=== PATIENT | female | born 1985 | race Caucasian/White ===

== ENCOUNTER 2020-05-09 06:57 | Outpatient (NON) | payer BC, OTHER, SELFPAY ==
[2020-05-09 22:44] LABS: SARS-CoV-2 RNA PCR Negative
== END 2020-05-09 06:58 ==
PROVIDERS: PCP Family Medicine; Visit Provider Family Medicine
DX: R50.9 Fever, unspecified (principal)
CPT/HCPCS: 87635; C9803; U0003

== ENCOUNTER 2020-07-26 06:54 | Outpatient (NON) | payer OTHER, SELFPAY ==
[2020-07-26 18:24] LABS: SARS-CoV-2 RNA PCR Negative
== END 2020-07-26 06:55 ==
PROVIDERS: PCP Family Medicine; Visit Provider Family Medicine
DX: R05 Cough (principal); Z20.828 Contact with and (suspected) exposure to other viral communicable diseases
CPT/HCPCS: 87635; C9803; U0003

== ENCOUNTER 2020-09-28 18:56 | Outpatient (CLI) | payer OTHER, SELFPAY ==
--- NOTE | ~2020-09-28 | XR_ITS ---
EXAMINATION: XR chest 2V DATE: 09/28/2020 19:11 INDICATION: Lung nodule seen on recent right shoulder radiographs. TECHNIQUE: PA and lateral views of the chest were obtained. COMPARISON: Chest radiograph dated 12/18/2013 FINDINGS: 1.7 cm chronic right upper lobe nodule which is calcified as demonstrated on neck CT dated 11/27/2016 c onsistent with old granulomatous disease. No other airspace opacities, pulmonary edema, pleural effus ion or pneumothorax. The cardiomediastinal silhouette is normal. Visualized bones and soft tissues ar e unremarkable. IMPRESSION: 1. 1.7 cm chronic calcified right upper lobe nodule consistent with old granulomatous disease. Reviewed, dictated and finalized at location A. NICAL SERVICES COORDINATOR IMPRESSION: 1. 1.7 cm chronic calcified right upper lobe nodule consistent with old granulo matous disease.
== END 2020-09-28 18:57 | disposition home or self-care (01) ==
PROVIDERS: PCP Family Medicine; Visit Provider Family Medicine
DX: R91.1 Solitary pulmonary nodule (principal)
CPT/HCPCS: 71046

== ENCOUNTER 2020-10-10 06:57 | Outpatient (NON) | payer OTHER, SELFPAY ==
[2020-10-10 16:58] LABS: Influenza Control Positive
== END 2020-10-10 06:58 ==
PROVIDERS: PCP Family Medicine; Visit Provider Family Medicine
DX: R05 Cough (principal)
CPT/HCPCS: 87804

== ENCOUNTER 2020-11-16 06:50 | Outpatient (NON) | payer OTHER, SELFPAY ==
[2020-11-16 16:56] LABS: Influenza Control Positive
[2020-11-16 21:44] LABS: SARS-CoV-2 RNA PCR Positive
== END 2020-11-16 06:51 ==
PROVIDERS: PCP Family Medicine; Visit Provider Family Medicine
DX: R50.9 Fever, unspecified (principal); U07.1 COVID-19
CPT/HCPCS: 87804; C9803; U0003; U0005

== ENCOUNTER → 2021-08-10 06:24 | Outpatient (CLI) | payer OTHER, SELFPAY ==
[2021-08-10 17:46] LABS: SARS-CoV-2 RNA PCR Negative
== END ==
PROVIDERS: PCP Family Medicine; Visit Provider Family Medicine
DX: J02.9 Acute pharyngitis, unspecified (principal); Z20.822 Contact with and (suspected) exposure to COVID-19
CPT/HCPCS: C9803; U0003; U0005

== ENCOUNTER 2024-12-01 16:52 | Emergency (ER) | payer OTHER, SELFPAY ==
--- OUTSIDE RECORDS SUMMARY | 2024-12-01 16:55 | XMS_ITS | Referral Summary ---
Author Organization [facility] Address [address] [place] [address] Care Team Providers Care Retail Services Professional Name Role Phone Fany Lozoya MD Primary Care Provider [phone] Source Comments [facility],non-owned Affiliates and Associated Physician Practices is amultiple site organization consisting of ambulatory clinics and hospital sitesin [place], [place], [place] and [place]. This disclosure is being madepursuant to the Care Everywhere program and may not contain all information available regarding this patient. Last updated 18.[facility] Allergies No known active allergies Medications * Be aware that medications may not be up to date on this document. Alwaysverify current medications with the patient. Medication Sig Dispensed Refills Start Date End Date Status ALPRAZolam (XANAX PO) Take by mouth as needed Active Social History Tobacco Use Types Packs/Day Years Used Date Smoking Tobacco: Every Day Cigarettes Sex and Gender Information Value Date Recorded Sex Assigned at Not on file Gender Identity Not on file Sexual Orientation Not on file Last Filed Vital Signs Vital Sign Reading Time Taken Comments Blood Pressure 120/74 10/07/2016 10:43 AM INTERVENTIONAL CARDIOLOGIST Pulse 95 10/07/2016 10:43 AM INTERVENTIONAL CARDIOLOGIST Temperature 36.6 C (97.9 F) 10/07/2016 10:43 AM INTERVENTIONAL CARDIOLOGIST Respiratory Rate 18 10/07/2016 10:43 AM INTERVENTIONAL CARDIOLOGIST Oxygen Saturation - - Inhaled Oxygen Concentration - - Weight 131.5 kg (290 lb) 10/07/2016 10:43 AM INTERVENTIONAL CARDIOLOGIST Height 175.3 cm (5' 9 ) 10/07/2016 10:43 AM INTERVENTIONAL CARDIOLOGIST Body Mass Index 42.83 10/07/2016 10:43 AM INTERVENTIONAL CARDIOLOGIST Plan of Treatment Not on file Care Teams Retail Services Professional Relationship Specialty Start Date End Date Fany Lozoya MD PCP - General Family Medicine 10/07/16
--- OUTSIDE RECORDS SUMMARY | 2024-12-01 16:55 | XMS_ITS | Referral Summary ---
Author Organization [facility] Address [address] [place] [address] Care Team Providers Care Ward Secretary Name Role Phone AntoniaKaterin DO Unavailable [phone] Tres Trinidad MD Primary Care Provider [phone] Layo Villegas MD Unavailable [phone] Allergies Active Allergy Reactions Criticality Noted Date Comments Omeprazole Diarrhea,Other (See comments) Low 2018 Prednisone Rash Medium 02/25/2018 Medications ALPRAZolam (XANAX) 0.25 mg tablet TK 1 T PO EVERY 8 HOURS PRN FOR ANXIETY 0 03/24/2018 Active levothyroxine (SYNTHROID, LEVOTHROID) 112 mcg tablet 12/14/2018 Active Synthroid 125 mcg tablet TAKE 1 TABLET BY MOUTH EVERY MORNING. TOTAL DAILY DOSE 237 MCG 12/08/2023 Active famotidine (PEPCID) 40 mg tablet Take 1 tablet (40 mg total) by mouth daily Active Active Problems Problem Noted Date Diagnosed Date Polyarthralgia 01/08/2024 Overview (01/22/2024): Labs 01/08/24: RBC 3.67, Hgb 10.2, Hct 31.8, TSH 27.2, FT4 1.0, CMP nl, ESR 17, CRP 0.09mg/dL, hepatitis panel negative [facility] 01/08/24: +TG (>4794), +TPO 87 XR b/l hands 12/2023: unremarkable US right hand/wrist (01/22/24): No significant joint effusions, power doppler, or erosive changes seen on US examination. Moderate synovial thickening in the 3rd PIP. Mild synovial thickening in the 2nd PIP joint. An enlarged median nerve at 0.14 cm2 is identified. 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 C/o persistent joint pain/stiffness lasting all day. Unable to take NSAIDs since weight loss surgery and taking tylenol without benefit. There is no obvious synovitis or tenderness noted on peripheral exam. Rheumatologic evaluation with [facility] revealed only +anti-thyroglobulin and TPO ab but was otherwise unremarkable for any other autoantibodies. TSH remains elevated but improved since being back on medication. XR of both hands are unremarkable. US of the right hand/wrist did not show any signs to suggest an inflammatory arthritis. There was some enlargement of the median nerve that may correlate if she is having any carpal tunnel symptoms. Based on unremarkable serologies, XR, and hand US, there is no evidence to suggest rheumatoid arthritis at this time. Previous 5th MCP erosion noted on MRI is not visualized on recent hand XR or hand US. Follow up as needed. Seen with Dr. Villegas. 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 C/o persistent joint pain/stiffness lasting all day. Unable to take NSAIDs since weight loss surgery and taking tylenol without benefit. There is no obvious synovitis or tenderness noted on peripheral exam today. Symptoms and exam are not overly suspicious for rheumatoid arthritis or any other inflammatory arthritis at this time. Will order appropriate serologies, radiographs, and a right hand/wrist US to further evaluate. Follow up in 2 weeks. Sooner if needed. Seen with Dr. Villegas. Tobacco dependence 02/11/2019 Other specified anxiety disorders 12/10/2018 Morbid obesity due to excess calories 11/12/2018 Overview (11/12/2018): Added automatically from request for surgery [id number] Arthralgia 02/25/2018 Elevated erythrocyte sedimentation rate 02/26/20 18 History of miscarriage 02/25/2018 Social History Tobacco Use Types Packs/Day Years Used Date Smoking Tobacco: Every Day Smokeless Tobacco: Never Comments:1 pack a week Alcohol Use Standard Drinks/Week Comments Yes 0 (1 standard drink = 0.6 oz pur e alcohol) once a month Personal Safety Answer Date Recorded Getting School Help Needed Not on file 12/16 Comments No Sex and Gender Information Value Date Recorded Sex Assigned at Not on file Legal Sex Female 10:01 AM DIRECTOR SAFETY Gender Identity Not on file Sexual Orientation Not on file Last Filed Vital Signs Vital Sign Reading Time Taken Comments Blood Pressure 122/76 01/22/2024 12:57 PM CDT Pulse 112 01/22/2024 12:57 PM CDT Temperature 36.9 C (98.5 F) 02/02/2019 10:22 AM CDT Respiratory Rate 16 2018 2:16 PM DIRECTOR SAFETY Oxygen Saturation 98% 01/22/2024 12:57 PM CDT Inhaled Oxygen Concentration - - Weight 122.5 kg (270 lb) 01/22/2024 12:57 PM CDT Height 172.7 cm (5' 8 ) 01/08/2024 11:20 AM CDT Body Mass Index 41.05 01/08/2024 11:20 AM CDT Plan of Treatment Not on file Procedures Procedure Name Priority Date/Time Associated Diagnosis Comments HEPATITIS PANEL, ACUTE Routine 01/08/2024 12:35 PM CDT Polyarthralgia Fatigue, unspecified type from Last 3 Months or Most Recently Relevant to Health Maintenance Results * Hepatitis panel, acute Blood (01/08/2024 12:35 PM CDT) Hep A IgM NON-REACTI VE NON-REACT CALVIN [facility] Comment: For additional information, please refer to http://education.[employer]/faq/IFN690 (This link is being provided for informational/ educational purposes only.) HepBsAg NON-REACTI VE NON-REACT CALVIN [facility] Comment: For additional information, please refer to http://[employer]/faq/GGA132 (This link is being provided for informational/ educational purposes only.) Hep B core IgM NON-REACTI VE NON-REACT CALVIN [facility] Comment: For additional information, please refer to http://[employer]/faq/SVH278 (This link is being provided for informational/ educational purposes only.) Hep C Ab NON-REACTI VE NON-REACT CALVIN [facility] Comment: HCV antibody was non-reactive. There is no laboratory evidence of HCV infection. In most cases, no further action is required. However, if recent HCV exposure is suspected, a test for HCV RNA (test code 13651) is suggested. For additional information please refer to http://[employer]/faq/TID73l1 (This link is being provided for informational/ educational purposes only.) Blood 01/08/2024 12:3 5 PM CDT 01/08/2024 12:36 PM CDT Christin [facility] MICROBIOLOGY - NERAL ORDERABLES Final Result [facility] [address] [place] [address] from Last 3 Months or Most Recently Relevant to Health Maintenance Insurance [facility] Member Subscriber Plan / Payer (Ef fective 2018-Present) Name:Kushal Fabiana Delbert Relation to Subscriber:Self Name:FABIANA VILLANUEVA Payer ID:[id number] (NAIC) Type: ALLIANCE Address: [address] [facility] [address] [place] Advance Directives For more information, please contact: [phone] * Full Code (Latest Code Status on File) Date Activated Date Inactivated Comments 2018 12:31 PM 2018 6:43 PM Care Teams Ward Secretary Relationship Specialty Start Date End Date Tres Trinidad MD [address] [place] [id number] PCP - General Family Medicine 12/16/23 Katerin Knight DO [address] [place] [address] 02/25/18 Layo Villegas MD [address] [place] [address] Consulting Physician Rheumatology 12/16/23
--- OUTSIDE RECORDS SUMMARY | 2024-12-01 16:55 | XMS_ITS | Clinical Summary ---
Author Organization [facility] Address [address] [place] [address] Care Team Providers Care Sustainability Director Name Role Phone Nelson Wu MD Unavailable [phone] Tres Trinidad MD Primary Care Provider [phone] Allergies Active Allergy Reactions Criticality Noted Date Comments Omeprazole Diarrhea,GI Upset 01/15/2019 Prednisone Hives,Rash Low 01/15/2019 Medications ALPRAZolam (XANAX) 0.25 MG tablet Take 1 tablet (0.25 mg total) by mouth daily as needed for Anxiety. 03/06/2023 Active SYNTHROID 125 MCG tablet TAKE 1 TABLET BY MOUTH EVERY MORNING. TOTAL DAILY DOSE 237 MCG 12/08/2023 Active famotidine (PEPCID) 20 MG tablet Take 1 tablet (20 mg total) by mouth 2 (two) times daily. 20 tablet 05/12/2024 Active tamsulosin (FLOMAX) 0.4 MG Cap Take 1 capsule (0.4 mg total) by mouth daily. 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/29/2023 Family History Medical History Relation Comments Heart Attack Father atrial fibrillation Mother Relation Status Comments Father Alive Mother Alive Social History Tobacco Use Types Packs/Day Years Used Date Smoking Tobacco: Some Days Cigarettes 0.3 17 Started: 02/23/2002; Last attempted to quit: 02/23/2019 Smokeless Tobacco: Never Tobacco Cessation:Ready to Q uit: No; Counseling Given: Yes Alcohol Use Standard Drinks/Week Comments Yes 0 (1 standard drink = 0.6 oz pur e alcohol) occasionally AUDIT-C Answer Date Recorded Frequency of Alcohol Consumption Monthly or less 01/15/2019 Average Number of Drinks Not on file 019 Frequency of Binge Drinking Not on file 12/26 Comments No Sex and Gender Information Value Date Recorded Sex Assigned at Not on file Legal Sex Female 8:29 PM CDT Gender Identity Not on file Sexual Orientation Not on file 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 Not on file Not on file Last Filed Vital Signs Vital Sign Reading Time Taken Comments Blood Pressure 121/75 05/12/2024 9:12 AM CDT Pulse 73 05/12/2024 9:12 AM CDT Temperature 36.2 C (97.1 F) 05/12/2024 9:12 AM CDT Respiratory Rate 18 05/12/2024 9:12 AM CDT Oxygen Saturation 94% 05/12/2024 9:12 AM CDT Inhaled Oxygen Concentration - - Weight 122.5 kg (270 lb) 05/12/2024 6:31 AM CDT Height 172.7 cm (5' 8 ) 05/12/2024 6:31 AM CDT Body Mass Index 41.05 05/12/2024 6:31 AM CDT Plan of Treatment Health Maintenance Due Date Last Done Comments ASCVD LDL 1986 ASCVD Statin 1986 Cervical Cancer Screening Pa p Smear (Age 30 to 64) Every 3 Years 1986 Annual Physical 1989 Pneumococcal Vaccine: Pediat rics (0 to 5 Years) and At-Risk Patients (6 to 64 Years) (1 of 2 - PCV) 1992 PHQ-2 (Physician [place]) 1998 Hepatitis C 2004 DTaP, Tdap and Td Vaccines ( 1 - Tdap) 2005 Hepatitis B Vaccines (1 of 3 - 19+ 3-dose series) 2005 Cervical Cancer Screening Pa p with HPV Testing (Age 30 to 64) Every 5 Years 2016 Cervical Cancer Screening with HPV 2016 COVID-19 Vaccine ( - 2023-2 5 season) 2024 Influenza Adult (#1) 2024 PHQ-2 (Physician [place]) 10/27/2024 HPV Vaccines Aged Out No longer eligi ble based on patient's age to complete this topic Meningococcal B Vaccine Aged Out No l onger eligible based on patient's age to complete this topic Meningococcal Vaccine Aged Out No jesika jamaica eligible based on patient's age to complete this topic RSV Immunizations Under 20 Months Aged Out No longer eligible based on patient's age to complete this topic Insurance [employer] [place] [id number] Advance Directives Documents on File Type Date Recorded 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
--- OUTSIDE RECORDS SUMMARY | 2024-12-01 16:55 | XMS_ITS | Encounter Summary ---
Author Organization [facility] Address [address] [place] [address] Care Team Providers Care Nursery School Attendant Name Role Phone Katerin Knight DO Primary Care Provider [phone] Nelson Wu MD Unavailable [phone] Tres Trinidad MD Primary Care Provider [phone] Encounter Details Date Type Department Care Team (Late st Contact Info) Description 01/19/2019 Abstract [facility] at [address] [address] Estephanie Lara MA Social History Tobacco Use Types Packs/Day Years Used Date Smoking Tobacco: Every Day Cigarettes 0.5 17 Smokeless Tobacco: Never Alcohol Use Standard Drinks/Week Comments Yes 0 (1 standard drink = 0.6 oz pur e alcohol) AUDIT-C Answer Date Recorded Frequency of Alcohol Consumption Monthly or less 01/15/2019 Average Number of Drinks Not on file 019 Frequency of Binge Drinking Not on file 12/26 Comments Unknown Sex and Gender Information Value Date Recorded Sex Assigned at Not on file Legal Sex Female 8:29 PM CDT Gender Identity Not on file Sexual Orientation Not on file 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 AMER. >90 <=90 EGFR NON-AFR. AMER. 85 <=90 ALKALINE PHOSPHATASE S/P/B 85 ALT 21 AST 9 BILIRUBIN TOTAL S/P/B 0.3 ALBUMIN S/P/B 4.1 3.5 - 5.0 TOTAL PROTEIN S/P/B 8.5 01/14/2019 us Doc [facility] Abstract LABORATORY Final Result * CBC (OUTSIDE LAB) (01/14/2019) WBC 11.1 HGB 14.4 HCT 41.6 PLT 406 01/14/2019 us Doc [facility] Abstract LAB-OUTSIDE/ABSTRACTED Final Result documented in this encounter Visit Diagnoses Not on filedocumented in this encounter Care Teams Nursery School Attendant Relationship Specialty Start Date End Date Katerin Knight DO PCP - General FAMILY PRACTICE 01/08/19 07/10/22 Tres Trinidad MD [facility] [place] [address] PCP - General FAMILY PRACTICE 07/11/22 Nelson Wu MD [facility] [address] [place] [address] Dille Flute Grinder INTERVENTIONAL CARDIOLOGY 03/02/19 documented as of this encounter
--- OUTSIDE RECORDS SUMMARY | 2024-12-01 16:55 | XMS_ITS | Encounter Summary ---
Author Organization [facility] Address [address] [place] [address] Care Team Providers Care Building Rental Superintendent Name Role Phone Lucius Nichole DO Primary Care Provider [phone] Katerin Knight DO Primary Care Provider [phone] Colton Segura MD Unavailable [phone] Nelson Wu MD Unavailable [phone] Tres Trinidad MD Primary Care Provider [phone] Encounter Details Date Type Department Care Team (Latest Contact Info) Description 09/01/2018 Abstract [facility] , Reba Macias MD Social History Tobacco Use Types Packs/Day Years Used Date Smoking Tobacco: Never Assessed Comments Unknown Sex and Gender Information Value Date Recorded Sex Assigned at Not on file Legal Sex Female 8:29 PM CDT Gender Identity Not on file Sexual Orientation Not on file documented as of this encounter Plan of Treatment Not on file documented as of this encounter Visit Diagnoses Not on filedocumented in this encounter Care Teams Building Rental Superintendent Relationship Specialty Start Date End Date Lucius Nichole DO [address] [place] [id number] PCP - General 11/07/14 01/07/19 Katerin Knight DO [facility] [place], [place] [id number] PCP - General FAMILY PRACTICE 01/08/19 07/10/22 Tres Trinidad MD [address] [place] [address] PCP - General FAMILY PRACTICE 07/11/22 Colton Segura MD [facility]. [facility] [address] [place] [address] Gil[place] Traffic Counter CARDIOVASCULAR DISEASE 01/11/19 01/11/19 Nelson Wu MD [facility]. [facility] [address] [place] [address] Gilmer Traffic Counter INTERVENTIONAL CARDIOLOGY 03/02/19 documented as of this encounter
--- OUTSIDE RECORDS SUMMARY | 2024-12-01 16:55 | XMS_ITS | Patient Health Summary ---
Author Organization [facility] Address [address] [place] [address] Care Team Providers Care Firebrick Layer Helper Name Role Phone Fany Lozoya MD Primary Care Provider Note from [facility],non-owned Affiliates and Associated Physician Practices is amultiple site organization consisting of ambulatory clinics and hospital sitesin [place], [place] and [place]. This disclosure is being madepursuant to the Care Everywhere program and may not contain all information available regarding this patient. Last updated 18.[facility] Allergies No known active allergies Medications * Be aware that medications may not be up to date on this document. Alwaysverify current medications with the patient. * ALPRAZolam (XANAX PO) Take by mouth as needed Social History Tobacco Use Types Packs/Day Years Used Date Smoking Tobacco: Every Day Cigarettes Sex and Gender Information Value Date Recorded Sex Assigned at Not on file Gender Identity Not on file Sexual Orientation Not on file Last Filed Vital Signs Vital Sign Reading Time Taken Comments Blood Pressure 120/74 10/07/2016 10:43 AM FPGA ENGINEER Pulse 95 10/07/2016 10:43 AM FPGA ENGINEER Temperature 36.6 C (97.9 F) 10/07/2016 10:43 AM FPGA ENGINEER Respiratory Rate 18 10/07/2016 10:43 AM FPGA ENGINEER Oxygen Saturation - - Inhaled Oxygen Concentration - - Weight 131.5 kg (290 lb) 10/07/2016 10:43 AM FPGA ENGINEER Height 175.3 cm (5' 9 ) 10/07/2016 10:43 AM FPGA ENGINEER Body Mass Index 42.83 10/07/2016 10:43 AM FPGA ENGINEER Care Teams Firebrick Layer Helper Relationship Specialty Start Date End Date Fany Lozoya MD PCP - General Family Medicine 10/07/16
--- OUTSIDE RECORDS SUMMARY | 2024-12-01 16:55 | XMS_ITS | Clinical Summary ---
Author Organization [facility] Address [address] [place] [address] Care Team Providers Care Guidance And Control System Engineer Name Role Phone Fany Lozoya MD Primary Care Provider [phone] Source Comments [facility],non-owned Affiliates and Associated Physician Practices is amultiple site organization consisting of ambulatory clinics and hospital sitesin [place] and [place]. This disclosure is being madepursuant to the Care Everywhere program and may not contain all information available regarding this patient. Last updated 18.[employer] [facility] Allergies No known active allergies Medications * [...] Comments Blood Pressure 120/74 10/07/2016 10:43 AM SEED ANALYSIS LABORATORY ASSISTANT Pulse 95 10/07/2016 10:43 AM SEED ANALYSIS LABORATORY ASSISTANT Temperature 36.6 C (97.9 F) 10/07/2016 10:43 AM SEED ANALYSIS LABORATORY ASSISTANT Respiratory Rate 18 10/07/2016 10:43 AM SEED ANALYSIS LABORATORY ASSISTANT Oxygen Saturation - - Inhaled Oxygen Concentration - - Weight 131.5 kg (290 lb) 10/07/2016 10:43 AM SEED ANALYSIS LABORATORY ASSISTANT Height 175.3 cm (5' 9 ) 10/07/2016 10:43 AM SEED ANALYSIS LABORATORY ASSISTANT Body Mass Index 42.83 10/07/2016 10:43 AM SEED ANALYSIS LABORATORY ASSISTANT Plan of Treatment Health Maintenance Due Date Last Done Comments PAP SMEAR 1986 HIV SCREENING 2001 HEPATITIS C SCREENING 12/18/2004 DTAP/TDAP/TD VACCINES (1 - Tdap) 2005 HEPATITIS B VACCINE (1 of 3 - 19+ 3-dose series) 2005 PNEUMOCOCCAL VACCINE (1 of 2 - PCV) 2005 COVID-19 VACCINE (1 - 2023-2 5 season) 2024 INFLUENZA VACCINE (#1) 2024 DEPRESSION SCREENING 10/27/2024 ZOSTER VACCINE (1 of 2) 2036 HIB VACCINE Aged Out No longer eligi ble based on patient's age to complete this topic HPV VACCINE Aged Out No longer eligi ble based on patient's age to complete this topic MENINGOCOCCAL (Group B) VACCINE Aged Out No longer eligible based on patient's age to complete this topic MENINGOCOCCAL VACCINE Aged Out No jesika jamaica eligible based on patient's age to complete this topic Care Teams Guidance And Control System Engineer Relationship Specialty Start Date End Date Fany Lozoya MD PCP - General Family Medicine 10/07/16
--- OUTSIDE RECORDS SUMMARY | 2024-12-01 16:55 | XMS_ITS | Clinical Summary ---
Author Organization [facility] Address [address] [place] [address] Care Team Providers Care District Resource Officer Name Role Phone AntoniaKaterin DO Unavailable [phone] Tres Trinidad MD Primary Care Provider [phone] Layo Villegas MD Unavailable [phone] Allergies Active Allergy Reactions Criticality Noted Date [...] (11/12/2018): Added automatically from request for surgery [id number] Arthralgia 02/25/2018 Elevated erythrocyte sedimentation rate 02/26/20 18 History of miscarriage 02/25/2018 Surgical History Surgery Date Site/Laterality Comments TONSILLECTOMY CHOLECYSTECTOMY GASTRIC BYPASS 10/27/2014 - 10/26/2015 Medical History Medical History Date Comments Anxiety Hypothyroidism Gastric ulcer Obesity Rheumatoid arthritis (HCC) DDD (degenerative disc disease), lumbar PCOS (polycystic ovarian syndrome) Pre-diabetes Family History Medical History Relation Name Comments Gout Brother Family history of gout - (Added by TW Conv) Heart attack Father Family history of myocardial infarction - (Added by TW Conv) Heart disease Father Family history of cardiac disorder - (Added by TW Conv) overweight Father Atrial fibrillation Mother Diabetes Mother Family history of diabetes mellitus - (Added by TW Conv) Hypertension Mother overweight Mother Relation Name Status Comments Brother Father Alive Mother Alive Social History Tobacco [...] on file Legal Sex Female 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 AM 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 Gender Identity Not on file Sexual Orientation Not on file Obstetrics History Last Filed Vital Signs Vital Sign Reading Time Taken Comments Blood Pressure 122/76 01/22/2024 12:57 PM CDT Pulse 112 01/22/2024 12:57 PM CDT Temperature 36.9 C (98.5 F) 02/02/2019 10:22 AM CDT Respiratory Rate 16 2018 2:16 PM 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 Oxygen Saturation 98% 01/22/2024 12:57 PM CDT Inhaled Oxygen Concentration - - Weight 122.5 kg (270 lb) 01/22/2024 12:57 PM CDT Height 172.7 cm (5' 8 ) 01/08/2024 11:20 AM CDT Body Mass Index 41.05 01/08/2024 11:20 AM CDT Plan of Treatment Health Maintenance Due Date Last Done Comments Cervical Cancer Screening 1986 Depression Screening 1986 Pneumococcal vaccine <65 (1 of 2 - PCV) 1992 DTaP/Tdap/Td Vaccine (1 - Tdap) 1997 Varicella Vaccines (1 of 2 - 13+ 2-dose series) 1999 Hepatitis B Screening 2004 Regular Well Visit/Exam 18-64 2004 Influenza Vaccine (#1) 2024 9, 07/29/2017, 08/23/2015, Additional history exists Hepatitis C Screening Completed 01/08/2024, 018 HPV Vaccines Aged Out No longer eligi ble based on patient's age to complete this topic Procedures Procedure Name Priority Date/Time Associated Diagnosis Comments HEPATITIS PANEL, ACUTE Routine 01/08/2024 12:35 PM CDT Polyarthralgia Fatigue, unspecified type from Last 3 Months or Most Recently Relevant to Health Maintenance Results * Hepatitis panel, acute Blood (01/08/2024 12:35 PM CDT) Hep A IgM NON-REACTI VE NON-REACT [facility] Comment: For additional information, please refer to http://Changers/faq/IBQ055 (This link is being provided for informational/ educational purposes only.) HepBsAg NON-REACTI VE NON-REACT [place]V[facility] Comment: For additional information, please refer to http://Changers/faq/PAD623 (This link is being provided for informational/ educational purposes only.) Hep B core IgM NON-REACTI VE NON-REACT [place]V[facility] Comment: For additional information, please refer to http://Wearhaus.EntomoPh[employer]/faq/OPT777 (This link is being provided for informational/ educational purposes only.) Hep C Ab NON-REACTI VE NON-REACT [place] Comment: HCV antibody was non-reactive. There is no laboratory evidence of HCV infection. In most cases, no further action is required. However, if recent HCV exposure is suspected, a test for HCV RNA (test code 54203) is suggested. For additional information please refer to http://Wearhaus.EntomoPharm/faq/XRU74r0 (This link is being provided for informational/ educational purposes only.) Blood 01/08/2024 12:3 5 PM CDT 01/08/2024 12:36 PM CDT [facility] - NERAL ORDERABLES Final Result Performing Organization Address City/State/[facility] Co de Phone Number [facility] [address] [place] [address] from Last 3 Months or Most Recently Relevant to Health Maintenance Insurance [place] [employer] [place] [address] Advance Directives For more information, please contact: [phone] * Full Code (Latest Code Status on File) Date Activated Date Inactivated Comments 2018 12:31 PM 2018 6:43 PM Care Teams District Resource Officer Relationship Specialty Start Date End Date Tres Trinidad MD [address] [place] [id number] PCP - General Family Medicine 12/16/23 Katerin Knight DO [address] [place] [address] 02/25/18 Layo Villegas MD [facility] [place] [address] Consulting Physician Rheumatology 12/16/23
[2024-12-01 17:04] VITALS: BP 129/78; PULSE 87; RESP 18; TEMP 36.7; O2SAT 100
--- NOTE | 2024-12-01 17:13 | ED.URI ---
HPI - URI/Sore Throat General Chief Complaint: Upper Respiratory Infection Stated Complaint: congestion and flu symptoms Time Seen by Provider: 12/01/24 17:13 Source: patient and RN notes reviewed Mode of arrival: ambulatory Limitations: no limitations History of Present Illness HPI Narrative: 38-year-old female presented for complaint of nausea, vomiting, diarrhea. Onset 2 days. Also reports some nasal congestion sinus pressure. Endorses temp of 100? yesterday. Endorses generalized abdominal cramping. No emesis since since 11:00 a.m. 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 PCP sent Medrol pack and she will follow-up in 2 days. Denies hematochezia, melena, hematemesis, cough, shortness of breath, wheezing or lethargy. Took DayQuil NyQuil. History of cholecystectomy. MD elicited complaint: cough Related Data Allergies Allergy/AdvReac Type Severity Reaction Status Date / Time omeprazole Allergy Mild unknown Verified 12/01/24 17:08 methylprednisolone Allergy Unknown flushing/hot Verified 12/01/24 17:08 flashes sertraline (From Zoloft) AdvReac Intermediate Jittery Verified 12/01/24 17:08 azithromycin (From Zithromax AdvReac jittery Verified 12/01/24 17:08 Z-Khoa) Review of Systems Review of Systems: ROS per HPI All systems reviewed & are unremarkable except as noted in HPI and below PMFSH Past Medical History Medical History Rheumatoid arthritis Cholecystectomy planned Thyroid disease Anxiety Surgical History Surgical History History of cholecystectomy H/O bariatric surgery Hx of tonsillectomy Family History Family History Mother Diabetes mellitus Father Hypertension Family history of elevated blood lipids Other Carcinoma of colon Family history of arthritis Family history of obesity Family history of thyroid disease Social History Social History Social History: 10/25/24 patient declined SDOH Smoking status: Former smoker Second hand tobacco smoke exposure: No Alcohol intake: current Substance use: never Substance use type: does not use Living arrangements: with family Occupation/Education: occupation Additional occupation/education comments: [employer] Gender identity (if verbalized by the patient): Female Spiritual care concerns: No Agree to blood products: Yes Comments At time of signature, I have reviewed and agree with nursing past medical, surgical, social and family history unless otherwise noted. Please see nursing chart for further information. There is no relevant family history pertinent to the presenting complaint Exam Narrative: GENERAL: Mildly Ill-appearing, nontoxic EYES: PERRLA, conjunctivae clear ENT: Mucous membranes moist. TM pearly russell with dull light reflex bilaterally; no tragal tenderness. Oropharynx not erythematous without lesions or exudate, no drooling, no hoarseness, no trismus, uvula midline. No tripod positioning, muffled voice, soft palate or pharyngeal wall bulging NECK: Supple. No lymphadenopathy CHEST: Clear to auscultation, breath sounds equal. No wheezing, rhonchi, rales, or stridor. No respiratory distress, speaks in full sentences. HEART: Regular rate and rhythm. No murmur heard. ABD: Soft, flat, generalized tenderness, large SKIN: Warm, dry, no rash. NEURO: Alert and oriented x3. PSYCH: Normal mood and affect Course Course Emergency Course: Patient is aware of diagnosis, understands and agrees to treatment plan. Anticipatory guidance given. Patient agrees to follow-up as directed and is aware of reasons to seek care at the emergency department. Portions of this record may have been created with voice recognition software Level of Care: Express Care Visit Vital Signs Vital signs: Vital Signs Temperature 98.1 F 12/01/24 17:04 Pulse Rate 87 12/01/24 17:04 Respiratory Rate 18 12/01/24 17:04 Blood Pressure 129/78 12/01/24 17:04 Pulse Oximetry 100 12/01/24 17:04 Oxygen Delivery Room Air 12/01/24 17:04 Temperature 98.1 F 12/01/24 17:04 Pulse Rate 87 12/01/24 17:04 Respiratory Rate 18 12/01/24 17:04 Blood Pressure 129/78 12/01/24 17:04 Pulse Oximetry 100 12/01/24 17:04 Oxygen Delivery Room Air 12/01/24 17:04 reviewed MDM - URI/Sore Throat MDM Narrative Medical decision making narrative: Negative flu and COVID. Discussed physical exam findings, Advised supportive measures and signs/symptoms to go to the ER. Pt is appropriate for outpt treatment and f/u as scheduled in 2 days. Differential Diagnosis Differential diagnosis: Likely upper respiratory infection, sinusitis and viral infection Lab Data Labs: Lab Results 12/01/24 Range/Units 17:18 POC Influenza A Ag Negative (Negative) POC Influenza B Ag Negative (Negative) POC SARS CoV-2 Ag Negative (Negative) Discharge Plan Discharge Clinical Impression: Viral infection Patient Disposition: Home, Self-Care Condition: Stable Instructions: Gastroenteritis (ED) Additional Instructions: Stay hydrated. Take small sips of fluid containing electrolytes frequently. Clear liquids (broth, jello, tea, sprite, pedialyte) Placer foods (bananas, rice, applesauce, toast, crackers) Avoid fatty, greasy, fried or spicy foods. Limit dairy until symptoms are improved. [id number] Imodium according to package directions Recommend probiotic such as align or lactobacillus to help with symptoms. You should go to the hospital if you experience persistent nausea and vomiting that does not resolve and does not allow you to tolerate any food or fluids, fevers, increasing abdominal pain, persistent diarrhea, dizziness, fainting, or for any other concerns. Follow up with primary care provider in 3 days. Patient Language: Zambian Prescriptions: New ondansetron 4 mg tablet,disintegrating 4 mg PO Q8H PRN (Reason: nausea and vomiting) Qty: 10 0RF No Action famotidine 40 mg tablet 40 mg PO DAILY Qty: 90 1RF levothyroxine [Synthroid] 125 mcg tablet 125 mcg PO QAM Qty: 90 1RF Rx Instructions: MAY NOT SUBSTITUTE. Take along with Synthroid 112mcg daily(TDD 237mcg) levothyroxine [Synthroid] 112 mcg tablet 112 mcg PO QAM Qty: 90 1RF Rx Instructions: MAY NOT SUBSTITUTE. Take along with Synthroid 125mcg daily(TDD 237mcg) fluoxetine [Prozac] 10 mg capsule 10 mg PO DAILY Qty: 90 0RF alprazolam [Xanax] 0.25 mg tablet 0.25 mg PO DAILY PRN (Reason: anxiety) Qty: 30 0RF methylprednisolone [Medrol (Khoa)] 4 mg tablets,dose pack See Rx Instructions PO PER PKG DIR Qty: 21 0RF Rx Instructions: PO PER PKG DIR Follow-up/Referrals: Dariana Cheney, LITHOGRAPHIC PRESS FEEDER-C [Primary Care Provider] - Stand Alone Forms: Work/School Release IP Time of Disposition: 17:24
[2024-12-01 17:20] LABS: EDCOVIDSCREEN Negative (Negative); EDINFLUASCREEN Negative (Negative); EDINFLUBSCREEN Negative (Negative)
== END 2024-12-01 17:28 | disposition home or self-care (01) ==
PROVIDERS: Emergency Provider Nurse Practitioner Family; PCP Nurse Practitioner Family
DX: B34.9 Viral infection, unspecified (principal); Z87.891 Personal history of nicotine dependence; Z20.822 Contact with and (suspected) exposure to COVID-19
CPT/HCPCS: 87426; 87804; 99213; G0463

== ENCOUNTER 2025-04-03 14:38 | Emergency (ER) | payer OTHER, SELFPAY ==
--- OUTSIDE RECORDS SUMMARY | 2025-04-03 14:41 | XMS_ITS | Clinical Summary ---
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 Gender Identity Not on file Sexual Orientation Not on file Obstetrics History Last Filed Vital Signs Vital Sign Reading Time Taken Comments Blood Pressure 122/76 01/22/2024 12:57 PM CDT Pulse 112 01/22/2024 12:57 PM CDT Temperature 36.9 C (98.5 F) 02/02/2019 10:22 AM CDT Respiratory Rate 16 2018 2:16 PM STONE CRUSHER OPERATOR Oxygen Saturation 98% 01/22/2024 12:57 PM CDT Inhaled Oxygen Concentration - - Weight 122.5 kg (270 lb) 01/22/2024 12:57 PM CDT Height 172.7 cm (5' 8) 01/08/2024 11:20 AM CDT Body Mass Index 41.05 01/08/2024 11:20 AM CDT Plan of Treatment Health Maintenance Due Date Last Done Comments Cervical Cancer Screening 1986 Depression Screening 1986 DTaP/Tdap/Td Vaccine (1 - Tdap) 1997 Varicella Vaccines (1 of 2 - 13+ 2-dose series) 1999 Hepatitis B Screening 2004 Regular Well Visit/Exam 18-64 2004 Pneumococcal vaccine <65 (1 of 2 - PCV) 2005 Influenza Vaccine (Season Ended) 2025 06/08/2019, 07/29/2017, 08/23/2015, Additional history exists Hepatitis C [...] Comment: For additional information, please refer to http://[facility]/faq/RGD996 (This link is being provided for informational/ educational purposes only.) HepBsAg NON-REACTI VE NON-REACT [place]VIN [facility] Comment: For additional information, please refer to http://[facility]/faq/RDK783 (This link is being provided for informational/ educational purposes only.) Hep B core IgM NON-REACTI VE NON-REACT [place] Comment: For additional information, please refer to http://[facility]/faq/JUI333 (This link is being provided for informational/ educational purposes only.) Hep C Ab NON-REACTI VE NON-REACT [facility] Comment: HCV antibody was non-reactive. There is no laboratory evidence of HCV infection. In most cases, no further action is required. However, if recent HCV exposure is suspected, a test for HCV RNA (test code 21378) is suggested. For additional information please refer to http://Fixya.Rawlemon/faq/YVY16g3 (This link is being provided for informational/ educational purposes only.) Blood 01/08/2024 12:3 5 PM CDT 01/08/2024 12:36 PM CDT Christin [facility] MICROBI[facility]Y - NERAL ORDERABLES Final Result Performing Organization Address City/State/ZIP Co nc Phone Number [facility] [address] [address] [place] [address] from Last 3 Months or Most Recently Relevant to Health Maintenance Insurance [place] [address] Advance Directives For more information, please contact: [phone] * Full Code (Latest Code Status on File) Date Activated Date Inactivated Comments 2018 12:31 PM 2018 6:43 PM Care Teams High [employer] Social Science Teacher Relationship Specialty Start Date End Date Tres Trinidad MD [address] [place] [id number] PCP - General Family Medicine 12/16/23 Katerin Knight DO [address] [place] [address] 02/25/18 Layo Villegas MD [facility] [place] [address] Consulting Physician Rheumatology 12/16/23
--- OUTSIDE RECORDS SUMMARY | 2025-04-03 14:41 | XMS_ITS | Referral Summary ---
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 Gender Identity Not on file Sexual Orientation Not on file Last Filed Vital Signs Vital Sign Reading Time Taken Comments Blood Pressure 122/76 01/22/2024 12:57 PM CDT Pulse 112 01/22/2024 12:57 PM CDT Temperature 36.9 C (98.5 F) 02/02/2019 10:22 AM CDT Respiratory Rate 16 2018 2:16 PM CRYPTOGRAPHIC CLERK Oxygen Saturation 98% 01/22/2024 12:57 PM CDT [...] Comment: For additional information, please refer to http://education.SquareHook/faq/ZOF172 (This link is being provided for informational/ educational purposes only.) HepBsAg NON-REACTI VE NON-REACT CALVIN [facility] Comment: For additional information, please refer to http://[employer].SquareHook/faq/IDL184 (This link is being provided for informational/ educational purposes only.) Hep B core IgM NON-REACTI VE NON-REACT CALVIN [facility] Comment: For additional information, please refer to http://Povo/faq/YPD104 (This link is being provided for informational/ educational purposes only.) Hep C Ab NON-REACTI VE NON-REACT CALVIN [facility] Comment: HCV antibody was non-reactive. There is no laboratory evidence of HCV infection. In most cases, no further action is required. However, if recent HCV exposure is suspected, a test for HCV RNA (test code 12726) is suggested. For additional information please refer to http://Povo/faq/NUA62y2 (This link is being provided for informational/ educational purposes only.) Blood 01/08/2024 12:3 5 PM CDT 01/08/2024 12:36 PM CDT Christin [facility] MICROBIOLOGY - NERAL ORDERABLES Final Result [facility] [address] [place] [address] from Last 3 Months or Most Recently Relevant to Health Maintenance Insurance [facility] Member Subscriber Plan / Payer (Ef fective 2018-Present) Name:Kushal Fabiana Mandujano Relation to Subscriber:Self Name:FABIANA VILLANUEVA Payer ID:[id number] (NAIC) Type: ALLIANCE Address: [address] Advance Directives For more information, please contact: [phone] * Full Code (Latest Code Status on File) Date Activated Date Inactivated Comments 2018 12:31 PM 2018 6:43 PM Care Teams Tool Crib Attendant Relationship Specialty Start Date End Date Tres Trinidad MD [address] [place] [id number] PCP - General Family Medicine 12/16/23 Katerin Knight DO [address] [place] [address] 02/25/18 Layo Villegas MD [address] [place] [address] Consulting Physician Rheumatology 12/16/23
--- OUTSIDE RECORDS SUMMARY | 2025-04-03 14:41 | XMS_ITS | Clinical Summary ---
Author Organization [facility] Address [address] [place] [address] Care Team Providers Care Audience Coordinator Name Role Phone Fany Lozoya MD Primary Care Provider Source Comments [facility],non-owned Affiliates and Associated Physician Practices is amultiple site organization consisting of ambulatory clinics and hospital sitesin [place], [place], [place] and [place]. This disclosure is being madepursuant to the Care Everywhere program and may not contain all information available regarding this patient. Last updated 18.[facility] Allergies No known active allergies Medications * Be aware that medications may not be up to date on this document. Alwaysverify current medications with the patient. 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 Gender Identity Not on file Sexual Orientation Not on file Last Filed Vital Signs Vital Sign Reading Time Taken Comments Blood Pressure 120/74 10/07/2016 10:43 AM CHIEF SUBSTATION OPERATOR Pulse 95 10/07/2016 10:43 AM CHIEF SUBSTATION OPERATOR Temperature 36.6 C (97.9 F) 10/07/2016 10:43 AM CHIEF SUBSTATION OPERATOR Respiratory Rate 18 10/07/2016 10:43 AM CHIEF SUBSTATION OPERATOR Oxygen Saturation - - Inhaled Oxygen Concentration - - Weight 131.5 kg (290 lb) 10/07/2016 10:43 AM CHIEF SUBSTATION OPERATOR Height 175.3 cm (5' 9) 10/07/2016 10:43 AM CHIEF SUBSTATION OPERATOR Body Mass Index 42.83 10/07/2016 10:43 AM CHIEF SUBSTATION OPERATOR Plan of Treatment Health Maintenance Due Date Last Done Comments HIV SCREENING 2001 HEPATITIS C SCREENING 12/18/2004 DTAP/TDAP/TD VACCINES (1 - Tdap) 2005 HEPATITIS B VACCINE (1 of 3 - 19+ 3-dose series) 2005 COVID-19 VACCINE (1 - 2023-2 5 season) 2024 DEPRESSION SCREENING 10/27/2024 INFLUENZA VACCINE (Season Ended) 2025 ZOSTER VACCINE (1 of 2) 2036 HIB VACCINE Aged Out No longer eligi ble based on patient's age to complete this topic HPV VACCINE Aged Out No longer eligi ble based on patient's age to complete this topic MENINGOCOCCAL (Group B) VACC INE SHARED DECISION-MAKING Aged Out No longer eligibl e based on patient's age to complete this topic MENINGOCOCCAL GROUPS A/C/Y/W VACCINE Aged Out No longer eligible b ased on patient's age to complete this topic PNEUMOCOCCAL VACCINE Aged Out No long er eligible based on patient's age to complete this topic Insurance Care Teams Audience Coordinator Relationship Specialty Start Date End Date Fany Lozoya MD PCP - General Family Medicine 10/07/16
--- NOTE | 2025-04-03 14:43 | ED_ITS ---
HPI - General Adult General Chief complaint: Wound/Laceration Stated complaint: Fish Hook in Lower Right Leg Time Seen by Provider: 04/03/25 14:43 Source: patient Mode of arrival: ambulatory Limitations: no limitations History of Present Illness HPI narrative: 39-year-old female patient presents to [facility] with complaints of a fishhook that is stuck into the right leg. Patient states that she was fishing today and caught the fishhook into the leg. Patient states she had did not catch any fish on the war. Patient states her last tetanus shot was approximately 2 years ago. Related Data Allergies Allergy/AdvReac Type Severity Reaction Status Date / Time omeprazole Allergy Mild unknown Verified 04/03/25 14:53 methylprednisolone Allergy Unknown flushing/hot Verified 04/03/25 14:53 flashes sertraline (From Zoloft) AdvReac Intermediate Jittery Verified 04/03/25 14:53 azithromycin (From Zithromax AdvReac jittery Verified 04/03/25 14:53 Z-Khoa) Review of Systems Review of Systems: CONSTITUTIONAL: Denies fever, chills, or sweats. EYES: Denies visual changes, redness, or discharge. ENT: Denies rhinorrhea, congestion, sore throat, or otalgia. CARDIOVASCULAR: Denies chest pain, palpitations, or edema. RESPIRATORY: Denies cough or dyspnea. GASTROINTESTINAL: Denies abdominal pain, nausea, vomiting, or diarrhea. GENITOURINARY: Denies dysuria or hematuria. SKIN: Denies rash or itching. Positive fish hook stuck in to right lower extremity MUSCULOSKELETAL: Denies back pain, joint pain, or myalgia. NEUROLOGIC: Denies headache, numbness, or weakness. PSYCHIATRIC: Denies anxiety or depression. [facility] Past Medical History Medical History Rheumatoid arthritis Cholecystectomy planned Thyroid disease Anxiety Surgical History Surgical History History of cholecystectomy H/O bariatric surgery Hx of tonsillectomy Family History Family History Mother Diabetes mellitus Father Hypertension Family history of elevated blood lipids Other Carcinoma of colon Family history of arthritis Family history of obesity Family history of thyroid disease Social History Social History Social History: 10/25/24 patient declined SDOH Smoking status: Former smoker Second hand tobacco smoke exposure: No Alcohol intake: current Substance use: never Substance use type: does not use Living arrangements: with family Occupation/Education: occupation Additional occupation/education comments: [employer] Gender identity (if verbalized by the patient): Female Spiritual care concerns: No Agree to blood products: Yes Exam Narrative: GENERAL: Well-appearing, well-nourished, and in no acute distress. HEAD: Normocephalic, atraumatic. EYES: PERRLA and EOMI. ENT: Nares clear, no rhinorrhea or epistaxis. Mucous membranes moist. NECK: Supple. No lymphadenopathy CHEST: Clear to auscultation. No respiratory distress. HEART: Regular rate and rhythm. No murmur heard. Normal peripheral pulses. ABDOMEN: Soft, nontender, nondistended, normal active bowel sounds. EXTREMITIES: Normal range of motion. No edema. SKIN: Warm, dry, no rash. patient has a 3 pronged fishhook with barbs noted in to the right lower extremity around the lateral calf area. There is only 1 geronimo in to the skin of the leg. Bleeding is currently controlled at this time. NEURO: No focal deficits. Alert and oriented x3. Course Course Level of Care: Express Care Visit Vital Signs Vital signs: Vital Signs Temperature 36.8 C 04/03/25 14:45 Pulse Rate 90 04/03/25 14:45 Respiratory Rate 16 04/03/25 14:45 Blood Pressure 121/76 04/03/25 14:45 Pulse Oximetry 99 04/03/25 14:45 Oxygen Delivery Room Air 04/03/25 14:45 Temperature 36.8 C 04/03/25 14:45 Pulse Rate 90 04/03/25 14:45 Respiratory Rate 16 04/03/25 14:45 Blood Pressure 121/76 04/03/25 14:45 Pulse Oximetry 99 04/03/25 14:45 Oxygen Delivery Room Air 04/03/25 14:45 Vital signs reviewed. Procedures Other Procedure Procedure 1: Other Procedure: Six mils of lidocaine was used to numb up the skin area around the hook in the right lower extremity. The hook was pushed through and then clipped off with wire welder. The area was scrubbed after the hook was removed with surgical scrub and saline. Antibiotic ointment and Band-Aid was applied. Patient tolerated procedure well. Medical Decision Making MDM Narrative Medical decision making narrative: Plan care for patient is to numb up the leg area, push the hook through and then clipped the hook off. We will clean the area well. calling will most likely be able to be discharged home. Differential Diagnosis Differential Diagnosis: Differential diagnosis: Abscess, cellulitis, hidradenitis, laceration, puncture wound. Vital Signs Vital Signs: Vital Signs Temperature 36.8 C 04/03/25 14:45 Pulse Rate 90 04/03/25 14:45 Respiratory Rate 16 04/03/25 14:45 Blood Pressure 121/76 04/03/25 14:45 Pulse Oximetry 99 04/03/25 14:45 Oxygen Delivery Room Air 04/03/25 14:45 Temperature 36.8 C 04/03/25 14:45 Pulse Rate 90 04/03/25 14:45 Respiratory Rate 16 04/03/25 14:45 Blood Pressure 121/76 04/03/25 14:45 Pulse Oximetry 99 04/03/25 14:45 Oxygen Delivery Room Air 04/03/25 14:45 Critical Care Time Critical Care Time Critical Care Time: No Discharge Plan Discharge Clinical Impression: Fish hook in calf Patient Disposition: Home Condition: Stable Instructions: Antibiotic Form, Puncture Wound (ED) Additional Instructions: Clean the wound with soap water, pat dry and apply antibiotic ointment on to the area at least twice today. Watch for signs and symptoms of infection including increased redness, swelling, discharge from the site. Watch for chills body aches or fevers and if any of these occur please follow-up with your primary doctor for further evaluation. Patient Language: Nepalese Prescriptions: New cephalexin 500 mg capsule 500 mg PO Q12H 7 Days Qty: 14 0RF No Action levothyroxine [Synthroid] 112 mcg tablet 112 mcg PO QAM Qty: 90 1RF Rx Instructions: MAY NOT SUBSTITUTE. Take along with Synthroid 125mcg daily(TDD 237mcg) levothyroxine [Synthroid] 125 mcg tablet 125 mcg PO QAM Qty: 90 1RF Rx Instructions: MAY NOT SUBSTITUTE. Take along with Synthroid 112mcg daily(TDD 237mcg) fluoxetine [Prozac] 10 mg capsule 10 mg PO DAILY Qty: 90 0RF alprazolam [Xanax] 0.25 mg tablet 0.25 mg PO DAILY PRN (Reason: anxiety) Qty: 30 0RF Follow-up/Referrals: Dariana Cheney APN-C [Primary Care Provider] - Time of Disposition: 15:17
[2025-04-03 14:45] VITALS: BP 121/76; PULSE 90; RESP 16; TEMP 36.8; O2SAT 99
== END 2025-04-03 15:19 | disposition home or self-care (01) ==
PROVIDERS: Emergency Provider Nurse Practitioner Family; PCP Nurse Practitioner Family
DX: S81.841A Puncture wound with foreign body, right lower leg, initial encounter (principal); W26.8XXA Contact with other sharp object(s), not elsewhere classified, initial encounter; Z87.891 Personal history of nicotine dependence; M06.9 Rheumatoid arthritis, unspecified; E07.9 Disorder of thyroid, unspecified; F41.9 Anxiety disorder, unspecified
CPT/HCPCS: 99213; G0463; J2003